=== PATIENT | female | born 1955 | race Caucasian/White ===

== ENCOUNTER 2018-04-01 14:00 | Outpatient (CLI) | payer MEDICARE, OTHER ==
--- NOTE | 2018-04-01 18:34 | MRI ---
MRI LUMBAR SPINE: 04/01/2018 PROVIDED CLINICAL HISTORY: Back pain. FINDINGS: Five lumbar type vertebral bodies are assumed. Lumbar alignment appears normal. Vertebral body heig hts appear preserved. No focal concerning regional marrow signal abnormality is evident. The conus medullaris is normal in signal and terminates at an appropriate level. The visualized extraspinal so ft tissues demonstrate no significant abnormality. Less than 1 cm of T2 hyperintensity involving the right kidney statistically reflects a cyst. L1-L2: There is no significant central canal or foraminal narrowing apparent. L2-L3: There is mild bilateral facet arthritis. There is no significant central canal or foraminal narrowing apparent. L3-L4: There is mild broad-based disk bulge and bilateral facet arthritis. there is no significant central canal or foraminal narrowing apparent. L4-L5: There is mild broad-based disk bulge and bilateral facet arthritis. There is mild right fora thad narrowing. No significant central canal stenosis. L5-S1: There is a broad-based disk bulge and bilateral facet arthritis. There is mild right foramin al narrowing. There is no significant central canal stenosis apparent. IMPRESSION: Lower lumbar disk and facet degenerative changes with mild foraminal narrowing, as above. POS: [facility]
== END 2018-04-01 14:01 | disposition home or self-care (01) ==
LOC: SCSMRI 14:00
PROVIDERS: ATTEND Family Medicine
DX: M47.896 Other spondylosis, lumbar region (principal); M99.83 Other biomechanical lesions of lumbar region
CPT/HCPCS: 72148

== ENCOUNTER 2018-05-09 10:51 | Outpatient (CLI) | payer MEDICARE, OTHER ==
--- NOTE | 2018-05-09 15:20 | CT ---
CT CHEST WITHOUT CONTRAST: Multiple axial tomograms are obtained through the chest following a low-dose protocol without IV cont rast. INDICATION: Low-dose lung screening. Many-year history of smoking. FINDINGS: There is a 4 mm calcified granuloma in the left lower lobe. A tiny 2 mm nodule in the posterior left lung base. Lung del angel are otherwise clear. Mediastinum appears unremarkable. Images of the upper abdomen are unremarkable. Mild degenerative changes in the thoracic spine. IMPRESSION: Lung RADS 2. Recommend 1-year screening low-dose chest CT. POS: [facility]
== END 2018-05-09 10:52 | disposition home or self-care (01) ==
LOC: CT 10:51
PROVIDERS: ATTEND Family Medicine
DX: Z12.2 Encounter for screening for malignant neoplasm of respiratory organs (principal); F17.210 Nicotine dependence, cigarettes, uncomplicated
CPT/HCPCS: G0297

== ENCOUNTER 2019-05-11 10:07 | Outpatient (CLI) | payer MEDICARE, OTHER ==
--- NOTE | 2019-05-11 13:01 | CT ---
CT PULMONARY LUNG SCAN WITHOUT CONTRAST: Date: 05/11/19 INDICATION: 64-year-old female with 40+pack/years smoking. History of tonsillectomy, cholecystectomy, appendectom y, cardiac bypass, hysterectomy, and colon polyp. COMPARISON: CT pulmonary lung scan dated 05/09/18. FINDINGS: Small calcified granuloma in the left lower lobe is stable. 2 mm nodule within the left lower lobe on the prior examination has intervally calcified. No new suspicious pulmonary nodule is evident. Emphy sematous change is stable. There are scattered vascular calcifications. There is a small hiatal herni a. Adrenal glands are normal appearing. There is diffuse osteopenia. There is scattered degenerative change. IMPRESSION: Lung-RADS Category 2. Recommend routine annual low dose lung cancer screening CT evaluation. POS: [facility]
== END 2019-05-11 10:08 | disposition home or self-care (01) ==
LOC: CT 10:07
PROVIDERS: ATTEND Family Medicine
DX: Z87.891 Personal history of nicotine dependence (principal)
CPT/HCPCS: G0297

== ENCOUNTER 2019-05-11 10:29 | Outpatient (CLI) | payer MEDICARE, OTHER ==
--- NOTE | 2019-05-18 16:17 | MMO ---
Bilateral MAMMO Bilat Screen [facility]. CLINICAL HISTORY: Patient is 64 years old and is seen for screening. The patient has the following family history of breast cancer: mother, malignant (generic). The patient has no personal history of cancer. VIEWS: The views performed were: bilateral craniocaudal with tomosynthesis and bilateral mediolateral oblique with tomosynthesis. FILMS COMPARED: The present examination has been compared to prior imaging studies performed at MAMMOGRAM FINDINGS: The breasts are heterogeneously dense, which could obscure a lesion on mammography. There are stable benign appearing calcifications seen in both breasts. There are no suspicious masses, suspicious calcifications, or new areas of architectural distortion. IMPRESSION: THERE IS NO MAMMOGRAPHIC EVIDENCE OF MALIGNANCY. A ROUTINE FOLLOW-UP MAMMOGRAM IN 1 YEAR IS RECOMMENDED. THE RESULTS OF THIS EXAM WERE SENT TO THE PATIENT. ACR BI-RADS Category 2 - Benign finding MAMMOGRAPHY NOTE: 1. A negative mammogram report should not delay a biopsy if a dominant of clinically suspicious mass is present. 2. Approximately 10% to 15% of breast cancers are not detected by mammography. 3. Adenosis and dense breasts may obscure an underlying neoplasm.
== END 2019-05-11 10:30 | disposition home or self-care (01) ==
LOC: BICMAMMO 10:29
PROVIDERS: ATTEND Family Medicine
DX: Z12.31 Encounter for screening mammogram for malignant neoplasm of breast (principal); Z80.3 Family history of malignant neoplasm of breast
CPT/HCPCS: 77063; 77067

== ENCOUNTER 2021-11-22 11:02 | Outpatient (CLI) | payer MEDICARE | END 2021-11-22 11:03 | disposition home or self-care (01) | LOC: BICCT 11:02 | PROVIDERS: ATTEND Family Medicine | DX: Z12.2 Encounter for screening for malignant neoplasm of respiratory organs (principal); K44.9 Diaphragmatic hernia without obstruction or gangrene | CPT/HCPCS: 71271 ==